=== PATIENT | male | born 1950 | race Caucasian/White ===

== ENCOUNTER 2020-09-29 14:04 | Emergency (ER) | payer MEDICARE, OTHER ==
[~2020-09-29 14:04] MED LIST: PREDNISONE20 MG PO; VALTREX1000 MG PO
[2020-09-29 14:40] LABS: BASOPHIL 0.3 % (0-2); EOSINOPHIL 1.6 % (0-7); HCT 42.4 % (42.0-52.0); HGB 14.4 g/dl (13.2-18.0); LYMPHOCYTE 18.9 % (15-48); MCH 30.6 pg (25.0-31.0); MONOCYTE 6.9 % (0-12); MPV 9.9 fL (6.0-9.5); NRBC 0; PLT 196 K/uL (150-400); RBC 4.71 M/uL (4.70-6.00); RDW 13.1 % (11.5-14.0); WBC 9.2 K/uL (4.0-10.5)
[2020-09-29 15:08] LABS: BUN 22 mg/dL (7-18); CHLORIDE 106 mmol/L (98-107); CO2 (BICARBONATE) 25 mmol/L (21-32); CREATININE 1.57 mg/dL (0.67-1.17); GLUCOSE 155 mg/dL (74-106); POTASSIUM 3.9 mmol/L (3.5-5.1)
[2020-09-29 15:09] LABS: ALBUMIN 3.9 g/dL (3.4-5.0); ALKALINE PHOSHATASE 70 U/L (46-116); ALT 52 U/L (16-63); AST 19 U/L (15-37); BILIRUBIN - TOTAL 0.9 mg/dL (0.2-1.0); TOTAL PROTEIN 6.9 g/dL (6.4-8.2)
[2020-09-29 15:15] LABS: BILIRUBIN NEGATIVE (NEGATIVE); BLOOD NEGATIVE Ery/uL (NEGATIVE); CLARITY CLEAR (CLEAR); COLOR YELLOW (YELLOW); GLUCOSE (U) NORMAL (NORMAL); LEUKOCYTES NEGATIVE Leu/uL (NEGATIVE); NITRITE NEGATIVE (NEGATIVE); PROTEIN TRACE (LOW) mg/dL (NEGATIVE); SPECIFIC GRAVITY >=1.030 (1.001-1.030); UROBILINOGEN 0.2 mg/dL (0.2-1.0)
[2020-09-29 15:18] LABS: AMPHETAMINES NEGATIVE (NEGATIVE); BARBITURATES NEGATIVE (NEGATIVE); ECSTASY (MDMA) NEGATIVE (NEGATIVE); MARIJUANA (THC) POSITIVE (NEGATIVE); METHADONE NEGATIVE (NEGATIVE); OPIATES NEGATIVE (NEGATIVE); OXYCODONE NEGATIVE (NEGATIVE)
[2020-09-29 15:27] LABS: MUCOUS MODERATE
== END 2020-09-29 16:04 | disposition home or self-care (01) ==
LOC: FER 14:04
PROVIDERS: Emergency Medicine
DX: R55 Syncope and collapse (principal); I45.4 Nonspecific intraventricular block; R00.1 Bradycardia, unspecified; E11.9 Type 2 diabetes mellitus without complications; I10 Essential (primary) hypertension; Z79.899 Other long term (current) drug therapy; Z79.52 Long term (current) use of systemic steroids
CPT/HCPCS: 36415; 70450; 71045; 80053; 80305; 81001; 84484; 85025; 93005; G0480

== ENCOUNTER → 2021-12-27 | Day surgery (SDC) | payer MEDICARE, OTHER ==
[~2021-12-27] VITALS: Ht 167.6 cm; Wt 84.4 kg
[~2021-12-27] MED LIST changes: +AMLODIPINE BESY10 MG PO; +ASPIRIN EC81 MG PO; +ATENOLOL50 MG PO; +DOXAZOSIN MESYLA8 M1 PO; +LEVOTHYROXINE112 MCG PO; +LISINOPRIL40 MG PO; +NORCO 5-325 TA1 EACH PO; +TRULICITY1.5 MG/0.5 IJ
[2021-12-27 09:08] LABS: HCT 44.4 % (42.0-52.0); HGB 15.2 g/dl (13.2-18.0); MCHC 34.2 g/dL (32.0-36.0); MCV 90.4 fL (78.0-100.0); MPV 9.4 fL (6.0-9.5); RBC 4.91 M/uL (4.70-6.00); RDW 13.4 % (11.5-14.0); WBC 8.9 K/uL (4.0-10.5)
[2021-12-27 09:28] LABS: ALBUMIN 4.1 g/dL (3.4-5.0); BILIRUBIN - TOTAL 0.5 mg/dL (0.2-1.0); BUN/CREAT RATIO (CALC) 15.2 RATIO; CREATININE 1.25 mg/dL (0.67-1.17); GLOBULIN (CALCULATION) 3.2 g/dL; POTASSIUM 4.4 mmol/L (3.5-5.1); TOTAL PROTEIN 7.3 g/dL (6.4-8.2)
== END | disposition home or self-care (01) ==
LOC: FAS 07:54
PROVIDERS: Surgery
DX: D18.01 Hemangioma of skin and subcutaneous tissue (principal); I10 Essential (primary) hypertension; E11.9 Type 2 diabetes mellitus without complications; E03.9 Hypothyroidism, unspecified
CPT/HCPCS: 36415; 80053; 93005; J1100; J1170; J1885; J2250; J2405; J2704; J3010; J7120